=== PATIENT | male | born 1975 | race Caucasian/White ===

== ENCOUNTER → 2022-10-14 | Outpatient (CLI) | payer BC | END | disposition home or self-care (01) | LOC: RAH 13:25 | PROVIDERS: ATTEND Family Medicine | DX: R22.1 Localized swelling, mass and lump, neck (principal) | CPT/HCPCS: 76536 ==

== ENCOUNTER → 2022-10-29 | Outpatient (CLI) | payer BC | END | disposition home or self-care (01) | LOC: RAH 09:10 | PROVIDERS: ATTEND Family Medicine | DX: M47.812 Spondylosis without myelopathy or radiculopathy, cervical region (principal); M48.02 Spinal stenosis, cervical region | CPT/HCPCS: 72040 ==

== ENCOUNTER → 2024-12-27 | Outpatient (CLI) | payer BC ==
[~2024-12-27] MED LIST: GADOTERATE MEGLUMINE 10 MMOL/20 ML VIAL IV ONE
--- NOTE | 2024-12-28 13:52 | HMCIMG ---
EXAMINATION: MR EXAMINATION OF THE CERVICAL SPINE WITHOUT CONTRAST CLINICAL HISTORY: Neck swelling. COMPARISON: None. TECHNIQUE: Multiplanar, multisequence MR images of the cervical spine are submitted. FINDINGS: The cervical alignment shows mild straightening of the cervical spine, likely reflecting paraspinal muscle spasm. There is no acute fracture or pathologic bone marrow signal abnormality. The cervical cord is normal in size and signal. There is no epidural mass or fluid collection. The paraspinal muscles demonstrate a 2 ??? 2.1 ??? 4 cm fat?signal intensity lesion left of the midline, deep to the splenius and trapezius muscles, scalloping the splenius cervicis across C3 to C5, without canal extension or muscle infiltration. FINDINGS BY LEVEL: C2?C3: No disc bulge or herniation. No significant central canal stenosis or neural foraminal narrowing. Facet joints are preserved. C3?C4: Mild disc desiccation with a mild disc bulge deforming the ventral thecal sac. No significant central canal stenosis or neural foraminal narrowing. Facet joints are preserved. C4?C5: Mild disc desiccation with a mild disc bulge deforming the ventral thecal sac. No significant central canal stenosis or neural foraminal narrowing. Facet joints are preserved. C5?C6: Moderate disc desiccation with a mild disc bulge deforming the ventral thecal sac. No significant central canal stenosis or neural foraminal narrowing. Facet joints are preserved. C6?C7: Mild disc desiccation with a mild disc bulge deforming the ventral thecal sac, accompanied by bilateral uncovertebral hypertrophy and disc?osteophyte complex causing mild bilateral foraminal narrowing. No significant central canal stenosis. Facet joints are preserved. C7?T1: No disc bulge or herniation. No significant central canal stenosis or neural foraminal narrowing. Facet joints are preserved. IMPRESSION: 1. 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 2. Multilevel mild disc bulges without significant central canal stenosis. 3. Mild bilateral foraminal narrowing at C6-C7. /[place]
== END | disposition home or self-care (01) ==
LOC: RAH 13:17
PROVIDERS: ATTEND Family Medicine
DX: M50.31 Other cervical disc degeneration, high cervical region (principal); M50.321 Other cervical disc degeneration at C4-C5 level; M50.322 Other cervical disc degeneration at C5-C6 level; M50.323 Other cervical disc degeneration at C6-C7 level; M48.02 Spinal stenosis, cervical region; R22.1 Localized swelling, mass and lump, neck
CPT/HCPCS: 72156; A9575